=== PATIENT | female | born 1970 | race Caucasian/White ===

== ENCOUNTER → 2017-05-03 | Outpatient (CLI) | payer BC | END | disposition home or self-care (01) | LOC: CDC 08:14 | DX: Z01.810 Encounter for preprocedural cardiovascular examination (principal) | CPT/HCPCS: 93000 ==

== ENCOUNTER 2017-05-24 07:36 | Day surgery (SDC) | payer BC ==
[~2017-05-24] VITALS: Ht 167.6 cm; Wt 71.2 kg
[~2017-05-24 07:36] MED LIST: ADVIL200 MG PO; ALEVE220 M2 PO; ATIVAN0.5 MG PO; EMERGEN-C 1,01000 MG PO; FLONASE ALLERG9.9 ML BOTH NARES; TYLENOL REGULA325 MG PO
[2017-05-24 08:07] VITALS: BP 136/87
[2017-05-24] MEDS ORDERED: ENDOCET 5-3251 EACH PO (08:26)
[2017-05-24] MEDS ORDERED: IBUPROFEN800 MG PO (08:26)
[2017-05-24] MEDS ORDERED: NITROFURANTOIN100 M3 PO (14:31)
[2017-05-24 15:10] VITALS: BP 118/64
[2017-05-24 20:54] VITALS: BP 126/81
[2017-05-25 00:33] VITALS: BP 112/60
[2017-05-25 04:08] VITALS: BP 117/65
[2017-05-25 07:18] VITALS: BP 113/63
== END 2017-05-25 12:00 | disposition home or self-care (01) ==
LOC: SDC 07:36 → 2SOUTH 13:29 → 2EASTP 13:29 → ENRESERV 13:41 → 2EASTP 15:09
PROC: 0UT94ZZ Resection of Uterus, Percutaneous Endoscopic Approach (ICD-10-PCS; principal; 2017-05-24)
PROC: 0TQB0ZZ Repair Bladder, Open Approach (ICD-10-PCS; principal; 2017-05-24)
PROC: 0UT74ZZ Resection of Bilateral Fallopian Tubes, Percutaneous Endoscopic Approach (ICD-10-PCS; principal; 2017-05-24)
DX: N80.0 Endometriosis of uterus (principal); D25.9 Leiomyoma of uterus, unspecified; N99.71 Accidental puncture and laceration of a genitourinary system organ or structure during a genitourinary system procedure; E06.3 Autoimmune thyroiditis; I49.40 Unspecified premature depolarization; R11.2 Nausea with vomiting, unspecified
CPT/HCPCS: 74000; 88307; G0378; J0131; J0690; J1100; J1170; J1885; J2250; J2405; J2710; J2765; J3010; J7120

== ENCOUNTER → 2017-06-02 | Outpatient (CLI) | payer BC ==
[~2017-06-02] MED LIST changes: +ENDOCET 5-3251 EACH PO; +IBUPROFEN800 MG PO; +NITROFURANTOIN100 M3 PO
== END | disposition home or self-care (01) ==
LOC: RAD 12:49 → EDSTATUS 13:00 → RAD 13:00
PROC: BT1B0ZZ Fluoroscopy of Bladder and Urethra using High Osmolar Contrast (ICD-10-PCS; principal; 2017-06-02)
DX: Z90.710 Acquired absence of both cervix and uterus (principal); Z98.890 Other specified postprocedural states
CPT/HCPCS: 74430